=== PATIENT | female | born 1980 | race Caucasian/White ===

== ENCOUNTER 2017-07-20 08:25 | Emergency (ER) | payer BC, OTHER ==
[2017-07-20 08:42] VITALS: BP 117/64
--- NOTE | 2017-07-20 08:59 | EDM.PDOC ---
ED HPI GENERAL MEDICAL PROBLEM - General Chief Complaint: General Stated Complaint: OBJECT STUCK IN HER VAGINA Time Seen by Provider: 07/20/17 08:47 - History of Present Illness INITIAL COMMENTS - FREE TEXT/NARRATIVE: HISTORY AND PHYSICAL: History of present illness: Patient 36-year-old white female presents with a concern of intravaginal foreign body this is in the form of a personal device since this morning Review of systems: As per history of present illness and below otherwise all systems reviewed and negative. Past medical history: As per history of present illness and as reviewed below otherwise noncontributory. Surgical history: As per history of present illness and as reviewed below otherwise noncontributory. Social history: No reported history of drug or alcohol abuse. Family history: As per history of present illness and as reviewed below otherwise noncontributory. Physical exam: HEENT: Atraumatic, normocephalic, pupils reactive, negative for conjunctival pallor or scleral icterus, mucous membranes moist, throat clear, neck supple, nontender, trachea midline. Lungs: Clear to auscultation, breath sounds equal bilaterally, chest nontender. Heart: S1S2, regular, negative for clicks, rubs, or JVD. Abdomen: Soft, nondistended, nontender. Negative for masses or hepatosplenomegaly. Negative for costovertebral tenderness. Pelvis: Speculum exam does reveal a personal device intravaginally that was removed without complication with no evidence of trauma or other concern Genitourinary: Deferred. Rectal: Deferred. Extremities: Atraumatic, negative for cords or calf pain. Neurovascular unremarkable. Neuro: Awake, alert, oriented. Cranial nerves II through XII unremarkable. Cerebellum unremarkable. Motor and sensory unremarkable throughout. Exam nonfocal. Diagnostics: None Therapeutics: Intravaginal foreign body removal Impression: #1 intravaginal foreign body status post removal Definitive disposition and diagnosis as appropriate pending reevaluation and review of above. - Related Data Allergies Allergy/AdvReac Type Severity Reaction Status Date / Time Sulfa (Sulfonamide Allergy Hives Verified 07/20/17 08:38 Antibiotics) Home Meds: Home Meds Spironolactone [Aldactone] PO DAILY 07/20/17 [History] buPROPion [Wellbutrin] 450 mg PO DAILY 07/20/17 [History] Past Medical History [employer] History: Reports: Polycystic Ovaries Psychiatric History: Reports: Depression Social & Family History - Family History Family Medical History: Noncontributory - Tobacco Use Smoking Status *Q: Never Smoker - Caffeine Use Caffeine Use: Reports: None - Recreational Drug Use Recreational Drug Use: No ED ROS GENERAL - Review of Systems Review Of Systems: ROS reveals no pertinent complaints other than HPI. ED EXAM, GENERAL - Physical Exam Exam: See Below (dictation) Course - Vital Signs Last Recorded V/S: Last Vital Signs Temp 35.9 C 07/20/17 08:40 Pulse 87 07/20/17 08:40 Resp 20 07/20/17 08:40 BP 117/64 07/20/17 08:40 Pulse Ox 97 07/20/17 08:40 Departure - Departure Time of Disposition: 08:58 Disposition: Home, Self-Care 01 Condition: Good Clinical Impression: Vaginal foreign body - Discharge Information Referrals: Angelica Strauss DO [Primary Care Provider] - Additional Instructions: The following information is given to patients seen in the emergency department who are being discharged to home. This information is to outline your options for follow-up care. We provide all patients seen in our emergency department with a follow-up referral. The need for follow-up, as well as the timing and circumstances, are variable depending upon the specifics of your emergency department visit. If you don't have a primary care physician on staff, we will provide you with a referral. We always advise you to contact your personal physician following an emergency department visit to inform them of the circumstance of the visit and for follow-up with them and/or the need for any referrals to a consulting specialist. The emergency department will also refer you to a specialist when appropriate. This referral assures that you have the opportunity for followup care with a specialist. All of these measure are taken in an effort to provide you with optimal care, which includes your followup. Under all circumstances we always encourage you to contact your private physician who remains a resource for coordinating your care. When calling for followup care, please make the office aware that this follow-up is from your recent emergency room visit. If for any reason you are refused follow-up, please contact the [facility] emergency department at and asked to speak to the emergency department charge nurse. Follow-up private medical doctor as needed as discussed return as needed as discussed
== END 2017-07-20 09:09 | disposition home or self-care (01) ==
LOC: MW.ED 08:25
DX: T19.2XXA Foreign body in vulva and vagina, initial encounter (principal); Z88.2 Allergy status to sulfonamides; Z79.899 Other long term (current) drug therapy
CPT/HCPCS: 99282

== ENCOUNTER 2022-06-24 06:19 | Emergency (ER) | payer OTHER ==
[2022-06-24] MEDS ORDERED: Dexamethasone 10 MG/ML SDV IM STA (06:26)
[2022-06-24 06:33] VITALS: BP 129/66; PULSE 84
== END 2022-06-24 06:38 | disposition home or self-care (01) ==
LOC: MW.ED 06:19
DX: K12.2 Cellulitis and abscess of mouth (principal); Z88.2 Allergy status to sulfonamides
CPT/HCPCS: 96372; 99282; J1100; 99284